=== PATIENT | female | born 1995 | race African-American/Black ===

== ENCOUNTER 2020-05-27 05:17 | Emergency (ER) | payer OTHER ==
[~2020-05-27] VITALS: Ht 162.6 cm; Wt 77.1 kg
--- NOTE | 2020-05-27 06:00 | NUR ---
REC'D COVID POS RESULTS. AWARE
[2020-05-27] MEDS ORDERED: ACETAMINOPHEN ES 500 MG TABLET ONE (06:06)
[2020-05-27 06:11] VITALS: BP 124/86
[2020-05-27] MEDS ORDERED: ACETAMINOPHEN ES 500 MG TABLET PO ONE (06:30)
== END 2020-05-27 06:12 | disposition home or self-care (01) ==
LOC: ER 05:22
DX: U07.1 COVID-19 (principal)
CPT/HCPCS: 71045; 87426; 99284; C9803